=== PATIENT | male | born 1985 | race African-American/Black ===

== ENCOUNTER 2021-04-17 19:03 | Emergency (ER) | payer OTHER, SELFPAY ==
[2021-04-17 19:04] VITALS: BP 152/80; PULSE 88; RESP 16; TEMP 36.4; O2SAT 100; BMI 30.4
--- NOTE | 2021-04-17 19:27 | EDS_ITS ---
HPI History of Present Illness Chief Complaint: Other, Pain/Inj Narrative Narrative: 36-year-old male presenting with pain behind his left knee in the superior aspect of his calf. He states he drove up from [place] today and drove to [facility]. He has been out of the car and ambulating. He states when he arrived to his last destination he felt pain behind the left knee. He thought maybe got bit by a spider because it was sharp. He was able to ambulate. He denies history of DVT/PE and has no risk factors. He states he is otherwise healthy. He has no chest pain, palpitations, shortness of breath. He denies any traumatic injury. Denies paresthesias. He states he is ambulatory. ROS ROS ED Constitutional Constitutional ED: Denies chills or fever(s) Eyes Eyes: Denies blurry vision or change in vision ENT ENT ED: Denies rhinorrhea or sore throat Cardiovascular Cardiovascular: Denies chest pain or palpitations Respiratory/Chest Respiratory/Chest: Denies cough or dyspnea Gastrointestinal Gastrointestinal: Denies abdominal pain, nausea or vomiting Genitourinary Genitourinary ED: Denies dysuria or hematuria Musculoskeletal Musculoskeletal: Reports other Details: Left calf pain ; Denies arthralgias or myalgias Integumentary Denies Abrasions or rash Neurologic Neurologic: Denies headache(s) or paresthesias PFSH PFSH Medical History no medical history Allergy/AdvReac Type Severity Reaction Status Date / Time No Known Allergies Allergy Verified 04/17/21 19:07 Surgical History no surgical history Social History Smoking Status: Never smoker EXAM Physical Exam Const Vital Signs: 04/17/21 19:04 Temperature 97.5 F L Temperature Source Temporal Pulse Rate 88 Respiratory Rate 16 Blood Pressure 152/80 H Blood Pressure Mean 104 Pulse Ox 100 Oxygen Delivery Method Room Air Positive well nourished General Appearance ED: NAD HEENT Reports moist mucous membranes normocephalic and atraumatic Eyes PERRL and EOMs intact bilaterally Resp normal respiratory effort Effort and Inspection: able to speak in complete sentences Extremity full ROM Extremity Narrative: Mild tenderness to the proximal aspect of the posterior calf on the left. There is a small area of swelling and tenderness although this not exquisite. There is no bruising, erythema, warmth. Neuro oriented x3 Psych mental status grossly normal and thought process normal Skin Lesions: no lesions Rashes: no rashes MDM MDM MDM Narrative Medical decision making narrative: Patient had DVT study performed which shows superficial thrombophlebitis. Patient counseled he can take baby aspirin or NSAIDs. He does state that he drives a lot this may be the likely cause. Patient is from out of town and will follow up with his PCP to ensure resolution. Impression: 1. Superficial thrombophlebitis Discharge Plan Triage Chief Complaint: Other, Pain/Inj ED Provider: Rodrick Romano Dx/Rx/DC Orders Instructions: ED Thrombophlebitis, Superficial Primary Care Provider: NOT,DEFINED Referrals: NOT,DEFINED [Primary Care Provider] - Disposition Disposition: Home, Self Care
--- NOTE | 2021-04-17 19:28 | US_ITS ---
STUDY: VENOUS DOPPLER ULTRASOUND - LEFT LOWER EXTREMITY REASON FOR EXAM: Male, 36 years old. LT POSTERIOR MEDIAL KNEE PAIN WARMTH AND SWELLING X 1 DAY TECHNIQUE: Ultrasound evaluation of the deep vein system to include roberts-scale imaging and compression was performed. Roberts-scale imaging and Doppler sonographic evaluation, including duplex spectral analysis and qualitative color flow sonography, was performed. COMPARISON: None. FINDINGS: Common Femoral Vein: Normal compression, spontaneity and augmentation. Normal color Doppler. Common Femoral Vein/Greater Saphenous Junction: Normal compression. Femoral Proximal: Normal compression. Femoral Middle: Normal compression, spontaneity and augmentation. Normal color Doppler. Femoral Distal: Normal compression. Popliteal Vein: Normal compression, spontaneity and augmentation. Normal color Doppler. Posterior Tibial Vein: Normal compression. Peroneal Vein: Normal compression. There is a varicosity posterior to the left knee with thrombosis. US/Venous Duplex Imag/Limited/Uni IMPRESSION: Varicosity with superficial thrombosis posterior to the knee. No deep venous thrombosis. Electronically Signed: Usman Hinton DO at 22:45 EDT Tel [phone], Service support ,
== END 2021-04-17 20:28 | disposition home or self-care (01) ==
PROVIDERS: Emergency Provider Student in an Organized Health Care Education/Training Program
DX: I80.02 Phlebitis and thrombophlebitis of superficial vessels of left lower extremity (principal)
CPT/HCPCS: 93971; 99282